=== PATIENT | male | born 1970 | race Caucasian/White ===

== ENCOUNTER 2017-12-22 15:43 | Emergency (ER) | payer BC ==
--- NOTE | 2017-12-22 16:30 | EDPHY ---
H & P Time Seen by Provider: 12/22/17 16:00 HPI/ROS: CHIEF COMPLAINT: Redness in the right armpit HISTORY OF PRESENT ILLNESS: Patient is a previous history of MRSA abscess and had the right axillary abscess drained at home before he came out here to visit , this past week on Tuesday. He is on Bactrim. Today he noticed redness extending inferiorly from the abscess area, it is still draining. He does not have fever or chills and otherwise generally feels well. He noticed the redness and came here for evaluation. REVIEW OF SYSTEMS: No weakness or numbness in the arm PAST MEDICAL HISTORY: Not immunocompromised Social history: Visiting from [place] [facility] Appearance: Alert and conversant, cooperative. Patient has a draining abscess in his armpit with a 1 cm incision, I was able to express pus from it. He has erythema extending down a 10 x 10 cm area inferior to the armpit. This is a little bit warm but not tender to palpation except right next to the incision area. No fluctuance, no crepitus, no blisters or eschar. Patient does not look septic or toxic. Normal range of motion of the right shoulder and normal respiratory effort. Normal motor sensory and vascular in the right hand. Emergency Department course/MDM: Discussed with the patient various options including the most conservative option which would be admission for IV vancomycin until he is improving. However the patient says he does not know if the redness is new today or if it has been present since his incision. He just really noticed it today. He does not look toxic and isn't febrile, he has minimal tenderness, is immunocompetent. No lymphangitis, wound is draining. He would prefer oral antibiotics for regular skin debra and see how he does over the next 24-48 hours. He states he understands that this is a higher risk course of action. The Clindamycin prescription and return precautions given. I think it is unlikely the patient has fasciitis or worsening abscess or deep space infection on the chest wall. Smoking Status: Never smoked Constitutional: Initial Vital Signs Temperature (C) 36.8 C 12/22/17 15:47 Heart Rate 70 12/22/17 15:47 Respiratory Rate 18 12/22/17 15:47 Blood Pressure 128/76 H 12/22/17 15:47 O2 Sat (%) 94 12/22/17 15:47 O2 Delivery Mode Room Air Allergies/Adverse Reactions: No Known Allergies Allergy (Unverified 12/22/17 15:46) Home Medications: Medication Instructions Recorded Bactrim DS 12/22/17 Clindamycin HCl [Clindamycin] 300 mg PO TID #30 cap 12/22/17 Mupirocin 12/22/17 MDM/Departure - Depart Disposition: Home, Routine, Self-Care Clinical Impression: Abscess of axilla, right Condition: Good Instructions: Abscess (ED) Additional Instructions: Return for worsening redness or pain or fevers. Continue bactrim wound culture results in 48 hours; [phone] Prescriptions: Clindamycin HCl [Clindamycin] 300 mg PO TID #30 cap Referrals: Eladia Magana MD [Medical Doctor] - 2-3 days, if not improved
[2017-12-22 17:07] VITALS: BP 116/77
== END 2017-12-22 17:07 | disposition home or self-care (01) ==
DX: L02.411 Cutaneous abscess of right axilla (principal)